=== PATIENT | female | born 1940 | race Caucasian/White ===

== ENCOUNTER 2018-05-27 08:19 | Emergency (ER) | payer OTHER, BC ==
--- NOTE | 2018-05-27 09:24 | EDPHY ---
General - History Smoking Status: Never smoked Time Seen by Provider: 05/27/18 09:00 Narrative: CLINICAL IMPRESSION: Head injury, neck pain ASSESSMENT/PLAN: Patient is a 77-year-old female with a significant history of coronary artery disease on Plavix, hypertension and hyperlipidemia who presents to the emergency department after she sustained a head injury approximately 1 hr prior to arrival. The fall was witnessed and there was no loss of consciousness. Patient is afebrile and nontoxic-appearing, she is in no acute distress on arrival. Her neurological exam is grossly normal with no focal deficit. Examination reveals area of ecchymosis along the right forehead extending into the parietal region. In considering patient's age and high risk of being on Plavix, proceeded with CT head for further evaluation and concern for possible intracranial hemorrhage. CT head and C-spine revealed overlying soft tissue hematoma from the site of impact, no evidence of intracranial hemorrhage, skull fracture, vertebral fracture or subluxation. The patient declined any pain medication in the emergency department. History and physical examination is consistent with head injury, head contusion and right-sided neck pain likely musculoskeletal in nature. No findings to suggest skull fracture, intracranial hemorrhage, CVA, vertebral fracture, subluxation, epidural hematoma, epidural compression or cauda equina. The patient was observed for a period of time, her neurological exam remained grossly normal with no focal deficit and she was at his baseline in regards to her mental status. The patient had no further concerns. The patient is well established with her PCP in [place] with plans to return tomorrow morning and will schedule follow-up appointment for early next week for repeat examination. She was also given a referral locally as needed. Strict return precautions were discussed- they will return to the emergency department for significantly worsening or uncontrolled pain, severe headache, dizziness, midline neck pain, altered mentation, lethargy, vomiting, seizure, abnormal movements or for any other concerning symptom. Patient verbalizes understanding and is in agreement with this plan. DIFFERENTIAL DX: Head injury including but not limited to concussion, skull fracture, intraparenchymal contusion, subarachnoid, subdural and epidural hematoma. ED COURSE: 0920: Discussed case with Dr. Clarke 1013: Case discussed with Dr. Bryant radiologist, no evidence of skull fracture, intracranial hemorrhage, vertebral fracture subluxation. CT head with senescent changes, otherwise unremarkable. CHIEF COMPLAINT: Head injury, neck pain HPI: Patient is a 77-year-old female with a significant history of coronary artery disease on Plavix, hypertension and hyperlipidemia who presents to the emergency department after she sustained a head injury approximately 1 hr prior to arrival. Patient reports she was getting out of bed, she rolled over too far accidentally falling out of bed hitting her head on the iron bed frame. There was no loss of consciousness, she denies any focal neurologic deficit, there has been no altered mentation, she has no known bleeding disorder and she denies any vomiting or posttraumatic seizure. Patient was able to get up, she called her son who is an ER physician and recommended she come to the emergency department for further evaluation. She complains of pain at the site of impact as well as swelling and bruising and right-sided neck pain. She denies any headache, dizziness, visual changes, midline neck pain or focal weakness. She has no history of previous neck pain or injury. Patient denies saddle paresthesias, lower extremity numbness, tingling, major motor weakness, urinary retention or bowel/bladder incontinence. She is visiting from [facility], plans to return tomorrow morning. PMH: Coronary artery disease, hypertension, hyperlipidemia Family History: Noncontributory Social History: Denies illicit drug use or smoking REVIEW OF SYSTEMS: All other systems negative Constitutional: No fever, no chills, appetite change. Eyes: No discharge, vision change ENT: No sore throat, congestion, ear pain. Cardiovascular: No chest pain, no palpitations. Respiratory: No cough, no shortness of breath. Gastrointestinal: No abdominal pain, no vomiting, diarrhea. Genitourinary: No hematuria, dysuria, flank pain, pelvic pain Musculoskeletal: Neck pain. No back pain, joint swelling, joint pain, myalgias. Skin: No rashes, color change. Neurological: No headache, dizziness, weakness. PHYSICAL EXAM: General Appearance: Well-appearing, no acute distress. HENT: Normocephalic. Patient with area of ecchymosis starting from the right forehead extending over the parietal region. She has no temporal tenderness. There is no bony deformity or crepitus. There is a well-healed incision from the right forehead extending to her crown from remote laceration as a child Bilateral external ears are normal. Bilateral tympanic membranes are normal with pearly muñoz reflex- no evidence of hemotympanum bilaterally. No raccoon eyes or Woody signs. Nares are clear, mucosa is pink. Oropharynx is clear, uvula is midline. There is no tonsillar enlargement or exudate. The dentition is normal. Eyes: PERRLA, EOMI intact without evidence of entrapment. Conjunctiva pink, no pallor or injection Neck: Supple, no lymphadenopathy, no midline pain- no step-off or deformity, patient with tenderness to palpation along the right paraspinal muscles and sternocleidomastoid, FROM, no meningismus. Respiratory: There are no retractions, lungs are clear to auscultation. Cardiac: Regular rate and rhythm, no murmurs or gallops. Gastrointestinal: Abdomen is soft, nontender, bowel sounds normal, no masses/ hernia, no rigidity, guarding or focal peritoneal findings. Neurological: MENTAL STATUS: Patient is alert and oriented to person, place, time, and situation. Recent and remote memory are intact. Attention and concentration are normal. Found knowledge is appropriate to level of education. Mood and affect normal. SPEECH: Language including naming, repetition, comprehension, and spontaneous speech are normal. No dysarthria or dysphagia. CRANIAL NERVES: II: Visual benavides are full to confrontation. Vision is grossly intact. III, IV, : Pupils are equal, round, reactive to light. Extraocular eye movements are full and without nystagmus. V: Facial sensation is intact to touch symmetrically in all 3 divisions. VII: Face is symmetric at rest with no asymmetry of grimace or evidence of facial weakness. VIII: Hearing is intact bilaterally to finger rub. IX, X: Palate is midline and elevates symmetrically with intact cough/gag. XI: Sternocleidomastoid and trapezius strength is normal. XII: Tongue protrudes midline without atrophy or fasciculations. MOTOR: Normal bulk and tone symmetrically in the upper and lower extremities. Upper extremities: shoulder abduction, elbow flexion, elbow extension, flexion of fingers and finger abduction strength 5/5 bilaterally. Lower extremities: hip flexion, knee flexion and extension, plantar and dorsiflexion of foot, and great toe extension strength 5/5 bilaterally. No pronator drift. SENSORY: Sensation is intact to light touch and symmetric in the UE's in LE's bilaterally. Romberg is negative. COORDINATION: Fine motor and rapid alternating movements are normal. Finger to nose is normal bilaterally. [id number] is normal bilaterally. No abnormal movements noted. There is no tremor at rest or with posture or action. GAIT/STATION: Casual, straightforward gait is normal. Patient can walk on toes and on heels. No gait instability. Skin: Warm, dry, no rashes, no nodules on palpation. Musculoskeletal: Extremities are symmetrical, full range of motion, no tenderness, deformity, swelling, or erythema. Psychiatric: Patient is oriented X 3, there is no agitation. MEDICAL DECISION MAKING: Patient was seen independently. Secondary supervising physician at time of evaluation was Dr. Clarke, he also evaluated this patient. Diagnosis: Head injury, neck pain. New, requires workup Summary: See Assessment and Plan for summary of ED visit Clinical lab tests: Not applicable. Independent visualization of images, tracing, or specimens: Yes. Decision to obtain medical records or history from someone other than the patient: Yes, Review / Summarize previous medical records: None available Discussed patient with another provider: Yes, Dr. Clarke Patient Progress: Stable, discharged. (Carsia Espinoza) Medical Decision Making: PHYSICIAN DOCUMENTATION: The patient was evaluated and managed by the Physician Commercial Illustrator and myself. I have reviewed the chart and agree with the findings and plan of care as documented. In addition, I examined the patient myself at 1015. History confirmed as hit head on bed frame. Physical findings as follows: Bruising and ecchymosis seen on the right side of the scalp after she removes her hair piece. Reasonable to perform head CT given age and Plavix. Negative head CT, stable for discharge. I am the secondary supervising physician. (Curtis Clarke) - Diagnostics Imaging Results: Imaging Impressions Cervical Spine CT 05/27/18 09:20 Impression: 1. Elderly brain with atrophy and probable white matter small vessel disease. 2. Scalp hematoma with no intracranial bleed identified. CT Cervical Spine Without Contrast History: Trauma. Technique: Multislice helical CT through the cervical spine without contrast from the skull base to T1. Soft tissue and bone evaluation is performed. Sagittal and coronal reconstructions are obtained and reviewed. Dose reduction techniques were utilized. Findings: Cervical alignment is anatomic. No fracture or dislocation is identified. The relationship between skull base and C1 is normal. The alignment of the C1-C2 articulation is normal. The odontoid process is normal. Multilevel degenerative changes are noted degenerative changes are most pronounced at the C5-C6 level where there is expected extensive disk space loss and bony hypertrophic changes. With disk space loss and bony hypertrophic changes. The cervical thoracic junction is normal. Soft tissue window evaluation does not show evidence of epidural or prevertebral hematoma. Impression: 1. Negative for fracture. 2. Degenerative changes are noted. Results called and discussed with DHRUV Goodson on 05/27/2018 at 10:12. Head CT 05/27/18 09:20 Impression: 1. Elderly brain with atrophy and probable white matter small vessel disease. 2. Scalp hematoma with no intracranial bleed identified. CT Cervical Spine Without Contrast History: Trauma. Technique: Multislice helical CT through the cervical spine without contrast from the skull base to T1. Soft tissue and bone evaluation is performed. Sagittal and coronal reconstructions are obtained and reviewed. Dose reduction techniques were utilized. Findings: Cervical alignment is anatomic. No fracture or dislocation is identified. The relationship between skull base and C1 is normal. The alignment of the C1-C2 articulation is normal. The odontoid process is normal. Multilevel degenerative changes are noted degenerative changes are most pronounced at the C5-C6 level where there is expected extensive disk space loss and bony hypertrophic changes. With disk space loss and bony hypertrophic changes. The cervical thoracic junction is normal. Soft tissue window evaluation does not show evidence of epidural or prevertebral hematoma. Impression: 1. Negative for fracture. 2. Degenerative changes are noted. Results called and discussed with DHRUV Goodson on 05/27/2018 at 10:12. - Objective Vital Signs: Initial Vital Signs Temperature (C) 36.7 C 05/27/18 08:23 Heart Rate 58 L 05/27/18 08:23 Respiratory Rate 18 05/27/18 08:23 Blood Pressure 153/91 H 05/27/18 08:23 O2 Sat (%) 97 02/24/19 08:23 O2 Delivery Mode Room Air Allergies/Adverse Reactions: No Known Allergies Allergy (Unverified 05/27/18 08:22) Home Medications: Medication Instructions Recorded Aspirin 81mg (*) 05/27/18 Atorvastatin Calcium 05/27/18 Coreg 05/27/18 Plavix 05/27/18 Departure - Departure Disposition: Home, Routine, Self-Care Clinical Impression: Head injury Qualifiers: Encounter type: initial encounter Qualified Code(s): S09.90XA - Unspecified injury of head, initial encounter Neck muscle strain Qualifiers: Encounter type: initial encounter Qualified Code(s): S16.1XXA - Strain of muscle, fascia and tendon at neck level, initial encounter Contusion Qualifiers: Encounter type: initial encounter Contusion area: head Contusion of head detail : scalp Qualified Code(s): S00.03XA - Contusion of scalp, initial encounter Condition: Good Instructions: Head Injury (ED), Acute Neck Pain (ED) Additional Instructions: DISCHARGE INSTRUCTIONS FROM YOUR DOCTOR Thank you for visiting our emergency department today. Please keep in mind that discharge from the emergency department does not mean that there is nothing wrong - it simply means that we have not identified an emergency condition that requires further evaluation or treatment in the hospital. You should always plan to follow up with primary care for re-evaluation of your condition in the next 2-3 days. Most neck pain improves quickly with rest and anti-inflammatory medicines. I recommend you follow up with primary care for recheck as soon as possible. Additional evaluation as an outpatient may be needed, and further therapeutic modalities such as chiropractic or PT may be helpful. Rest. Avoid lifting greater than 10-15 pounds. Avoid twisting or prolonged sitting. Movement and gentle walking is good for you. Try to walk for 15-10 minutes on an even surface 3 or 4 times a day as tolerated and increase gentle exercise as your back improves. Apply ice to your neck during acute pain phase, later a heating pad set to a low setting or hot tub may be helpful to help relax muscles. For pain control: You may take Tylenol, I recommend 500-1000 mg every 6-8 hours as needed. Take with food and a full glass of water. Stop taking if this is upsetting her stomach. Do not exceed 3000 mg in a 24 hr period. Schedule a follow-up appointment with your primary care physician in the next 2- 3 days for re-evaluation. You may require further treatment, physical therapy and/or further future testing. Return for increased or unmanageable pain, new injury, new midline back pain, numbness, tingling, weakness of your legs, loss of bowel or bladder control, inability to urinate, burning or pain with urination, blood in the urine, fever , chills, abdominal pain, vomiting, difficulty walking, dizziness, fainting, chest pain, shortness of breath, neck pain, neck stiffness, other site of back pain, calf pain, severe headache, dizziness, visual changes or for any other new , worsening or worrisome symptoms. People present with illnesses and injuries in different ways, and it is always possible that we have missed something. You may always return for re-evaluation if symptoms worsen or if they are not improving or if you develop new/different symptoms. Again, thank you for choosing our emergency department. We hope that you feel better. Referrals: DARWIN BROWNE MD [Other] - 1-2 days without fail Bartolo Harley DO [Doctor of Osteopathy] - Follow Up Only If Needed (Local referral)
[2018-05-27 10:35] VITALS: BP 162/57
== END 2018-05-27 11:13 | disposition home or self-care (01) ==
DX: S00.03XA Contusion of scalp, initial encounter (principal); S16.1XXA Strain of muscle, fascia and tendon at neck level, initial encounter; W01.190A Fall on same level from slipping, tripping and stumbling with subsequent striking against furniture, initial encounter; Y92.003 Bedroom of unspecified non-institutional (private) residence as the place of occurrence of the external cause